=== PATIENT | male | born 1940 | race Caucasian/White ===

== ENCOUNTER 2017-08-31 09:52 | Emergency (ER) | payer SELFPAY ==
[~2017-08-31] VITALS: Ht 170.2 cm; Wt 64.9 kg
--- NOTE | 2017-08-31 10:10 | NUR ---
PT WAS BROUGHT IN BY DTR DUE TO SHANNAN PAIN, REDNESS AND SWELLING SINCE FRIDAY, NO TRAUMA. NAD VSS RR EVEN AND UNLABORED. KEPT WARM AND COMFORTABLE. PENDING ER MD FORRESTER
--- NOTE | 2017-08-31 10:28 | NUR ---
DR TAYLOR AT BEDSIDE FOR EVALUATION
[2017-08-31] MEDS ORDERED: CEFTRIAXONE 1 G VIAL ONE (10:39)
[2017-08-31] MEDS ORDERED: LIDOCAINE HCL/MPF 1% 30 ML VIAL IJ ONE (10:39)
--- NOTE | 2017-08-31 10:49 | NUR ---
PT GIVEN MEDS IM PER MD ORDER VSS TOLERATED WEL DAUGHTER AT BEDSIDE
--- NOTE | 2017-08-31 10:55 | NUR ---
PT. VERBALIZED UNDERSTANDING OF AFTERCARE INSTRUCTIONS.Patient discharged to home in stable condition. Written and verbal after care instructions given. Patient verbalizes understanding of instruction.
[2017-08-31 10:57] VITALS: BP 156/70
[2017-08-31] MEDS ORDERED: CEFTRIAXONE 1 G VIAL IM ONE (11:00)
== END 2017-08-31 10:59 | disposition home or self-care (01) ==
LOC: ER 09:54
DX: L03.114 Cellulitis of left upper limb (principal); I10 Essential (primary) hypertension; Z98.890 Other specified postprocedural states
CPT/HCPCS: 96372; 99283; A4606; J0696; J3490; Z7610